=== PATIENT | male | born 1990 ===

== ENCOUNTER 2018-12-27 18:46 | Emergency (ER) | payer SELFPAY ==
--- NOTE | 2018-12-27 22:52 | C.PDOC ---
History Of Present Illness Patient presents with multiple symptoms: chest pain for two days with no dyspnea, headache, LLQ abdominal pain intermittently for about a year, and sore throat for several days with no definite fever but "feeling hot". Triage note also reports near syncopal episode, however patient does not report this currently. Denies any past medical problems. Time Seen by Provider: 12/27/18 21:12 Chief Complaint (Nursing): Chest Pain History Per: Patient History/Exam Limitations: no limitations Past Medical History Reviewed: Historical Data, Nursing Documentation, Vital Signs Vital Signs: Last Vital Signs Temp 98.8 F 12/27/18 18:57 Pulse 83 12/27/18 18:57 Resp 18 12/27/18 18:57 BP 137/96 H 12/27/18 18:57 Pulse Ox 99 12/27/18 18:57 - Medical History PMH: No Chronic Diseases, Depression Family History: States: Unknown Family Hx - Social History Hx Alcohol Use: No Hx Substance Use: No - Immunization History Hx Tetanus Toxoid Vaccination: No Hx Influenza Vaccination: No Hx Pneumococcal Vaccination: No Review Of Systems Except As Marked, All Systems Reviewed And Found Negative. Constitutional: Positive for: Fever ENT: Positive for: Throat Pain Cardiovascular: Positive for: Chest Pain Respiratory: Negative for: Shortness of Breath Gastrointestinal: Positive for: Abdominal Pain. Negative for: Nausea, Vomiting Genitourinary: Negative for: Dysuria Skin: Negative for: Rash Neurological: Negative for: Altered Mental Status Physical Exam - Physical Exam Appears: Well, Non-toxic, No Acute Distress Skin: Normal Color, Warm, Dry Head: Atraumatic, Normacephalic Eye(s): bilateral: Normal Inspection Oral Mucosa: Moist Throat: No Erythema, Exudate (bilateral tonsils), No Mass Chest: Symmetrical, No Tenderness Cardiovascular: Rhythm Regular Respiratory: Normal Breath Sounds Gastrointestinal/Abdominal: Soft, No Tenderness, No Mass, No Distention, No Guarding, No Rebound Extremity: No Deformity, No Swelling Neurological/Psych: Oriented x3, Normal Speech ED Course And Treatment O2 Sat by Pulse Oximetry: 99 Medical Decision Making Medical Decision Making: Patient given 975mg tylenol PO for headache. CXR done and showed no acute disease. EKG done- NSR, rate 83, RAD, normal intervals, ST depressions in inferolateral leads. Rapid strep done and was negative. Patient re-evaluated, advised to follow up as outpatient. He has an appointment with his PMD on 01/05/19. Disposition - Disposition Disposition: HOME/ ROUTINE Disposition Time: 23:50 Condition: STABLE Additional Instructions: SHAWN CARABALLO, thank you for letting us take care of you today. Your provider was Mona Solis MD and you were treated for CHEST PAIN ,BLURRY VISION. The emergency medical care you received today was directed at your acute symptoms. If you were prescribed any medication, please fill it and take as directed. It may take several days for your symptoms to resolve. Return to the Emergency Department if your symptoms worsen, do not improve, or if you have any other problems. Please contact your doctor or call one of the physicians/clinics you have been referred to that are listed on the Patient Visit Information form that is included in your discharge packet. Bring any paperwork you were given at discharge with you along with any medications you are taking to your follow up visit. Our treatment cannot replace ongoing medical care by a primary care provider outside of the emergency department. Thank you for allowing the [facility] team to be part of your care today. If you had an X-Ray or CT scan: A Radiologist will review the ED reading if any change in treatment is needed we will contact you. If you had a blood, urine, or wound culture: It will take several days for the results, if any change in treatment is needed we will contact you. If you had an STI test: It will take 48 hours for the results. Please call after 1 week if you have not heard back. Instructions: Sore Throat, Adult (DC), Chest Pain (DC) Forms: [employer] (Italian) Print Language: JAPANESE - Clinical Impression Clinical Impression: Chest pain, Sore throat
[2018-12-28 01:39] VITALS: PULSE 88
[2018-12-28 01:42] VITALS: BP 128/76; RESP 20; TEMP 98.4; O2SAT 97
--- NOTE | 2018-12-28 11:08 | RAD ---
HISTORY: chest pain COMPARISON: None available. TECHNIQUE: Chest, one view. FINDINGS: Examination limited by habitus. LUNGS: No focal consolidation. Subtle small nodular opacities in the right hemithorax suspected to reflect calcified granulomas. Please note that chest x-ray has limited sensitivity for the detection of pulmonary masses. PLEURA: No significant pleural effusion identified. No definite pneumothorax . CARDIOVASCULAR: The cardiomediastinal silhouette appears within normal limits of size. No significant atherosclerotic calcification present. OSSEOUS STRUCTURES: No acute osseous abnormality identified. VISUALIZED UPPER ABDOMEN: Unremarkable. OTHER FINDINGS: None. IMPRESSION: No focal consolidation. Scattered small nodular opacities in the right hemithorax, likely granulomas.
== END 2018-12-28 01:00 | disposition home or self-care (01) ==
LOC: C.ER 18:46
DX: R07.9 Chest pain, unspecified (principal); J02.9 Acute pharyngitis, unspecified